=== PATIENT | male | born 1955 | race Caucasian/White ===

== ENCOUNTER 2017-08-19 08:34 | Day surgery (SDC) | payer BC ==
[2017-08-19] VITALS (7 sets, daily range): BP systolic 123–133; BP diastolic 56–94; PULSE 52–62; RESP 18; TEMP 98; O2SAT 94–98
[~2017-08-19] VITALS: Ht 167.6 cm; Wt 92.3 kg
[2017-08-19] MEDS ORDERED: PANT40TA3 PO (09:30)
[2017-08-19] MEDS ORDERED: LEVOFLOXACIN 500 MG PREMIX 100 ML - nephrostomy tube insertion or exchange IV SCH (09:30)
[2017-08-19] MEDS ORDERED: CHOL5000 PO (09:30)
[2017-08-19] MEDS ORDERED: MISCTAB12 (09:30)
[2017-08-19] MEDS ORDERED: VITA250C3 CHEW (09:30)
[2017-08-19] MEDS ORDERED: BENI40TA29 PO (09:30)
[2017-08-19] MEDS ORDERED: HYDR12.57 PO (09:30)
[2017-08-19] MEDS ORDERED: ENZA40CA PO (09:30)
[2017-08-19] MEDS ORDERED: TAMS0.4C4 (09:30)
[2017-08-19] MEDS ORDERED: MAGN400T2 PO (09:30)
[2017-08-19] MEDS ORDERED: ASPI1TAB57 PO (09:30)
[2017-08-19] MEDS ORDERED: SODIUM CHLORIDE 0.9% 1000 ML IV SCH (09:30)
[2017-08-19 09:44] LABS: BASOPHIL # 0.1 TH/MM3 (0-0.2); BASOPHIL % 1.3 % (0.0-2.0); EOSINOPHIL # 0.2 TH/MM3 (0-0.4); EOSINOPHIL % 4.7 % (0.0-4.0); HEMATOCRIT 31.6 % (39.0-51.0); HEMOGLOBIN 10.7 GM/DL (13.0-17.0); LYMPH % 23.9 % (9.0-44.0); LYMPHOCYTE # 1.2 TH/MM3 (1.0-4.8); MEAN CELL VOLUME 95.9 FL (80.0-100.0); MEAN CORPUSCULAR HEMOGLOBIN 32.6 PG (27.0-34.0); MEAN PLATELET VOLUME 6.8 FL (7.0-11.0); MONOCYTE # 0.5 TH/MM3 (0-0.9); NEUT % 60.1 % (16.0-70.0); PLATELET COUNT 323 TH/MM3 (150-450); RED BLOOD COUNT 3.29 MIL/MM3 (4.50-5.90); RED CELL DISTRIBUTION WIDTH 13.2 % (11.6-17.2)
[2017-08-19 09:54] LABS: PROTHROMBIN TIME - PATIENT 10.2 SEC (9.8-11.6)
[2017-08-19] MEDS ORDERED: fentaNYL CITRATE 250 MCG/5 ML AMP ONE (10:24)
[2017-08-19] MEDS ORDERED: MIDAZOLAM HCL 5 MG/5 ML VIAL ONE (10:24)
--- NOTE | 2017-08-19 11:43 | PD.RAD ---
Post Procedure Progress Note Pre Procedure Diagnosis: (1) Hydronephrosis Post Procedure Diagnosis: (1) Hydronephrosis Procedure Date: Aug 19, 2017 Supervising Radiologist: Husam Villalobos Proceduralist/Assist: Manuela Grossman, RT(R)(CV), Swati Bruner RT(R) Anesthesia: Conscious Sedation Plan of Activity Patient to Unit: ROPU Patient Condition: Good See PACS Report for procedural detail/treatment Husam Villalobos MD Aug 19, 2017 11:43
--- NOTE | 2017-08-19 13:08 | RADRPT ---
EXAM DATE/TIME: 08/19/2017 08:56 [facility] COMPARISON: No previous studies available for comparison. 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 Retrograde access attempt has been unsuccessful. Percutaneous antegrade access with ureteral stent placement has been requested. MEDICAL HISTORY : Prostate cancer High cholesterol HTN Migraines Osteoarthritis SURGICAL HISTORY : Cystoscopy Prostate Bx Hemorrhoiclectomy nasal septoplasty ENCOUNTER: Initial ACUITY: 1 month PAIN SCORE: 0/10 FLUORO TIME: 5.6 minutes IMAGE SERIES: 1 SEDATION TIME: 45 minutes CONTRAST: 20 cc Omnipaque (iohexol) 350 MEDICATION(S): 1.) 3 mg midazolam (Versed) IV 2.) 150 mcg fentanyl (Sublimaze) IV DEVICE(S): 1.) 8 Maldivian ureteral stent 8x24 PROCEDURE : 1. Antegrade percutaneous pyelogram. 2. Percutaneous ureteral stent and percutaneous nephrostomy catheter placement. 3. Conscious sedation with continuous EKG and oximetry monitoring. The risks, benefits and alternatives to the procedure were explained and verbal and written consent w as obtained. The site was prepped in sterile fashion. Full sterile technique was used, including ca p, mask, sterile gloves and gown and a large sterile sheet. Hand hygiene and 2% chlorhexidine and/or betadine/alcohol prep was utilized per protocol for cutaneous antisepsis. The skin and subcutaneous tissues were infiltrated with local anesthetic solution. An upper pole calyx was targeted with ultrasound and 21 gauge needle. Following calyceal puncture a w bladimir was successfully advanced into the bladder. The ureteral stent above was placed over with the pro ximal portion within the renal pelvis and the distal extent in the urinary bladder. An 8 Maldivian nephr ostomy catheter was subsequently placed in the renal pelvis. The patient tolerated the procedure well and there were no complications. Conscious sedation was performed with the prescribed dosages and duration as above in the presence of an independent trained radiology nurse to assist in the monitoring of the patient. EKG and oximetry remained stable throughout the procedure. The patient tolerated the procedure well and there were no complications. The patient was sent to post anesthesia recovery in stable condition. CONCLUSION: 1. Uncomplicated placement of a left-sided ureteral stent for treatment of distal ureteral obstructio n. 2. The percutaneous nephrostomy catheter was left in the collecting system to maintain access. Plan: Patient will be challenged following 24-48 hrs. of drainage with plan for subsequent nephrostom y catheter removal. Husam Villalobos MD on August 19, 2017 at 13:01 Board Certified Radiologist. This report was verified electronically.
[2017-08-19] MEDS ORDERED: ACETAMINOPHEN 325 MG TAB PO ONE (13:15)
== END 2017-08-19 15:00 | disposition home or self-care (01) ==
LOC: EDBD → HROP 08:34 → HRIP 08:35 → HROP 15:00
PROVIDERS: ATTEND Urology
DX: N13.30 Unspecified hydronephrosis (principal); Z85.46 Personal history of malignant neoplasm of prostate; E78.00 Pure hypercholesterolemia, unspecified; I10 Essential (primary) hypertension; M19.90 Unspecified osteoarthritis, unspecified site; Z92.3 Personal history of irradiation
CPT/HCPCS: 50695; 85025; 85610; 85730; 99152; 99153; C1729; C1769; C1877; C1887; C1894; J1956; J2250; J3010; J7030

== ENCOUNTER 2017-08-22 17:03 | Emergency (ER) | payer BC ==
[~2017-08-22] VITALS: Ht 167.6 cm; Wt 93.0 kg
[~2017-08-22 17:03] MED LIST: ASPI1TAB57 PO; BENI40TA29 PO; CHOL5000 PO; ENZA40CA PO; HYDR12.57 PO; MAGN400T2 PO; MISCTAB12; PANT40TA3 PO; TAMS0.4C4; VITA250C3 CHEW
[2017-08-22] MEDS ORDERED: MORPHINE SULFATE 4 MG/ML INJ IV PUSH ONE (17:30)
[2017-08-22] MEDS ORDERED: ONDANSETRON HCL 4 MG/2 ML VIAL IV PUSH ONE (17:30)
[2017-08-22] MEDS ORDERED: SODIUM CHLOR 0.9% 1000 ML INJ 1,000 ML IV SCH (17:30)
[2017-08-22] MEDS ORDERED: KETOROLAC TROMETHAMINE 30 MG/ML (IVP) VIAL IV PUSH ONE (17:30)
[2017-08-22 17:32] VITALS: BP 139/86; PULSE 71; RESP 16; TEMP 99.1; O2SAT 100
--- NOTE | 2017-08-22 17:56 | PD ---
HPI Chief Complaint: Flank/Kidney Pain Time Seen by Provider: 17:28 Travel History International Travel<30 days: No Contact w/Intl Traveler<30days: No Traveled to known affect area: No History of Present Illness HPI The patient is a 62-year-old male who presents emergency department for left flank pain and hematuria. The patient has a history of prostate cancer, has an internal stent that was placed by interventional radiology as well as an external stent that was placed by radiology. The patient has been having reddish tinged blood in the external stent, however, is had no hematuria through the penis. He does complain of left-sided flank pain. The patient accidentally pulled on his external stent yesterday. The patient had stents placed after he had severe hydronephrosis on the left side, possibly secondary to previous radiation therapy for prostate cancer. The patient is followed by his urologist, Dr. Manzo. Symptoms are moderate. No nausea or vomiting. No fever. PFSH Past Medical History Cancer: Yes (PROSTATE CANCER, BLADDER CA) Cardiovascular Problems: No Diabetes: No Endocrine: No Gastrointestinal Disorders: Yes (GERD) Genitourinary: Yes (HYDRONEPHROSIS, INCONTINENCE) Hepatitis: No Hiatal Hernia: Yes Hypertension: Yes Immune Disorder: Yes (MORE SUPCEPTIBLE TO INFECTION) Musculoskeletal: No Neurologic: Yes (CVA 2017) Psychiatric: No Reproductive: No Respiratory: Yes (SLEEP APNEA- CPAP AT HOME) Immunizations Current: No (BAD REACTION TO FLU SHOT) Thyroid Disease: No Past Surgical History AICD: No Genitourinary Surgery: Yes (CYSTOSCOPY) Joint Replacement: No Oral Surgery: Yes (SEPTOPLASTY) Pacemaker: No Thoracic Surgery: Yes (BREAST LIPOMA REMOVE) Other Surgery: Yes Social History Alcohol Use: No Tobacco Use: No Substance Use: No Allergies-Medications (Allergen,Severity, Reaction): Uncoded Allergies: PCN (Allergy, Intermediate, Hives, 08/19/17) Reported Meds & Prescriptions Reported Meds & Active Scripts Active Cipro (Ciprofloxacin HCl) 500 Mg Tab 500 Mg PO BID 10 Days Reported Aspirin 81 (Aspirin) 81 Mg Tabdr 81 Mg PO DAILY Tumersaid (Misc Natural Products) 100-100 Mg Tab 500 DAILY Magnesium Oxide 400 Mg Tab 400 Mg PO DAILY Vitamin C (Ascorbic Acid) 250 Mg Chew 500 Mg CHEW DAILY Tamsulosin (Tamsulosin HCl) 0.4 Mg Cap 0.4 Mg HS Pantoprazole (Pantoprazole Sodium) 40 Mg Tab 40 Mg PO DAILY Vitamin D3 (Cholecalciferol) 5,000 Unit Cap 5,000 Units PO DAILY Xtandi (Enzalutamide) 40 Mg Cap 160 Mg PO DAILY Hydrochlorothiazide 12.5 Mg Cap 12.5 Mg PO DAILY Benicar (Olmesartan) 40 Mg Tab 40 Mg PO DAILY Review of Systems Except as stated in HPI: all other systems reviewed are Neg General / Constitutional: No: Fever Cardiovascular: No: Chest Pain or Discomfort Respiratory: No: Shortness of Breath Gastrointestinal: No: Nausea, Vomiting Genitourinary: Positive: Hematuria, Flank Pain Physical Exam Narrative GENERAL: Awake, alert, pleasant 62-year-old male who appears his stated age and appears in moderate discomfort. SKIN: Focused skin assessment warm/dry. HEAD: Atraumatic. Normocephalic. EYES: No injection or drainage. ENT: No nasal bleeding or discharge. Mucous membranes pink and moist. NECK: Trachea midline. No JVD. CARDIOVASCULAR: Regular rate and rhythm. No murmur appreciated. RESPIRATORY: No accessory muscle use. Clear to auscultation. Breath sounds equal bilaterally. GASTROINTESTINAL: Abdomen soft, non-tender, nondistended. No rebound tenderness. Back: External stent on the left noted. Blood noted in external stent back. No visible bleeding from insertion site. MUSCULOSKELETAL: No obvious deformities. No clubbing. No cyanosis. No edema. NEUROLOGICAL: Awake and alert. No obvious cranial nerve deficits. Motor grossly within normal limits. Normal speech. PSYCHIATRIC: Appropriate mood and affect; insight and judgment normal. Data Data Last Documented VS Vital Signs Date Time Temp Pulse Resp B/P (MAP) Pulse Ox O2 Delivery O2 Flow Rate FiO2 08/22/17 17:32 99.1 71 16 139/86 (103) 100 Orders Orders Morphine Inj (Morphine Inj) (08/22/17 17:30) Ondansetron Inj (Zofran Inj) (08/22/17 17:30) Ketorolac Inj (Toradol Inj) (08/22/17 17:30) Sodium Chlor 0.9% 1000 Ml Inj (Ns 1000 M (08/22/17 17:30) Abdomen, Kub Only (08/22/17 ) Ct Abd/Pel W/O Iv Contrast (3/17/18 ) Morphine Inj (Morphine Inj) (08/22/17 18:15) Complete Blood Count With Diff (08/22/17 18:26) Basic Metabolic Panel (Bmp) (08/22/17 18:26) Urinalysis - C+S If Indicated (08/22/17 18:26) Sodium Chlorid 0.9% 500 Ml Inj (Ns 500 M (08/22/17 21:00) Acetamin-Hydrocod 325-10 Mg (Currie 10-32 (08/22/17 21:00) Urine Culture (08/22/17 19:30) Ciprofloxacin (Cipro) (08/22/17 21:30) Ed Discharge Order (08/22/17 21:53) Labs Laboratory Tests Test 08/22/17 17:29 08/22/17 19:30 White Blood Count 7.1 TH/MM3 Red Blood Count 3.42 MIL/MM3 Hemoglobin 11.0 GM/DL Hematocrit 32.2 % Mean Corpuscular Volume 94.0 FL Mean Corpuscular Hemoglobin 32.0 PG Mean Corpuscular Hemoglobin Concent 34.1 % Red Cell Distribution Width 13.0 % Platelet Count 338 TH/MM3 Mean Platelet Volume 7.3 FL Neutrophils (%) (Auto) 68.1 % Lymphocytes (%) (Auto) 21.0 % Monocytes (%) (Auto) 6.8 % Eosinophils (%) (Auto) 3.2 % Basophils (%) (Auto) 0.9 % Neutrophils # (Auto) 4.8 TH/MM3 Lymphocytes # (Auto) 1.5 TH/MM3 Monocytes # (Auto) 0.5 TH/MM3 Eosinophils # (Auto) 0.2 TH/MM3 Basophils # (Auto) 0.1 TH/MM3 CBC Comment DIFF FINAL Differential Comment Blood Urea Nitrogen 24 MG/DL Creatinine 1.56 MG/DL Random Glucose 99 MG/DL Calcium Level 9.2 MG/DL Sodium Level 133 MEQ/L Potassium Level 4.9 MEQ/L Chloride Level 99 MEQ/L Carbon Dioxide Level 26.1 MEQ/L Anion Gap 8 MEQ/L Estimat Glomerular Filtration Rate 45 ML/MIN Urine Color RED Urine Turbidity HAZY Urine pH 6.5 Urine Specific [place] 1.017 Urine Protein 30 mg/dL Urine Glucose (UA) NEG mg/dL Urine Ketones NEG mg/dL Urine Occult Blood LARGE Urine Nitrite NEG Urine Bilirubin NEG Urine Urobilinogen LESS THAN 2.0 MG/DL Urine Leukocyte Esterase MOD Urine RBC /hpf Urine WBC 103 /hpf Urine Bacteria RARE /hpf Microscopic Urinalysis Comment CULTURE INDICATED MDM Medical Decision Making Medical Screen Exam Complete: Yes Emergency Medical Condition: Yes Medical Record Reviewed: Yes Differential Diagnosis Differential diagnosis includes perinephric hematoma, obstructive uropathy, hydronephrosis, UTI, stent malplacement, stent malfunction, acute renal failure. Narrative Course IV was established, labs are drawn and sent, and the patient was placed on cardiac telemetry monitoring and continuous pulse oximetry monitoring. The patient was general ii farmworker morphine, Toradol, Zofran, placed on IV fluids. I discussed the patient with interventional radiologist, Dr. Daniel Moscoso, who evaluated the patient in the emergency department. He flushed the patient's external stent, then placed I shot an x-ray, stents are apparently in place, he did push the external stent and slightly. He recommended CT of the abdomen and pelvis to evaluate for possible perinephric hematoma. BUN/creatinine has been sent to lab. The patient was signed out to the oncoming physician at 7 PM. If there is no large perinephric hematoma and creatinine is at baseline, the patient to be discharged home and follow up with interventional radiology on Thursday. Diagnosis Primary Impression: Flank pain Patient Instructions: General Instructions Scripts Ciprofloxacin (Cipro) 500 Mg Tab 500 MG PO BID for Infection for 10 Days, #20 TAB 0 Refills Prov: Michelle Santos MD 08/22/17 Condition: Stable Sathish Sharma MD Aug 22, 2017 17:56
[2017-08-22] MEDS ORDERED: MORPHINE SULFATE 2 MG/ML INJ IV PUSH ONE (18:15)
--- NOTE | 2017-08-22 18:23 | RADRPT ---
EXAM DATE/TIME: 08/22/2017 17:41 [facility] COMPARISON: No previous studies available for comparison. INDICATIONS : Flank pain. MEDICAL HISTORY : Osteoarthritis, Migraines, HTN, High cholesterol, Prostate cancer SURGICAL HISTORY : Cystoscopy,Prostate Bx, Hemorrhoiclectomy,nasal septoplasty ENCOUNTER: Initial ACUITY: 1 day PAIN SCORE: 0/10 LOCATION: Bilateral Abdomen FINDINGS: Single KUB imaging is provided. This demonstrates the patient ureteral stent to be in excellent posit ion. The patient's nephrostomy tube appears well-positioned as well. There is contrast within the col lecting system of the kidney. And within the bladder. CONCLUSION: 1. The patient's ureteral stent is in excellent position. There is an approximate tube present as wel l. The nephrostomy is coiled within an upper pole calyx. Dick Moscoso MD on August 22, 2017 at 18:20 Board Certified Radiologist. This report was verified electronically.
--- NOTE | 2017-08-22 18:58 | RADRPT ---
EXAM DATE/TIME: 08/22/2017 18:44 [facility] COMPARISON: No previous studies available for comparison. INDICATIONS : Left flank pain. Post nephrostomy. ORAL CONTRAST: No oral contrast ingested. RADIATION DOSE: 16.45 CTDIvol (mGy) MEDICAL HISTORY : Hypertension. Hernia, hiatal. Carcinoma, bladder.Carcinoma, prostate GERD SURGICAL HISTORY : Left nephrostomy ENCOUNTER: Initial ACUITY: 1 day PAIN SCALE: 8/10 LOCATION: Left flank TECHNIQUE: Volumetric scanning of the abdomen and pelvis was performed. Using automated exposure control and ad justment of the mA and/or kV according to patient size, radiation dose was kept as low as reasonably achievable to obtain optimal diagnostic quality images. DICOM format image data is available electro nically for review and comparison. FINDINGS: There is a left sided nephrostomy tube and a left-sided ureteral stent. There is residual contrast in the left renal collecting system which is mildly dilated. There is also some residual contrast in th e bladder. No right-sided renal calculi or obstructive uropathy. Linear parenchymal scarring or atelectasis at the lung bases. No acute findings in the liver, spleen, adrenals or pancreas. No calcified gallstones. Stomach is mildly distended. There is no bowel obstruction. Mild constipation. CONCLUSION: 1. Left sided nephrostomy and ureteral stent present with residual contrast in the kidney and bladder . Minimal dilatation left renal collecting system. Sean Vaughan MD on August 22, 2017 at 18:49 Board Certified Radiologist. This report was verified electronically.
[2017-08-22 19:20] LABS: BICARBONATE 26.1 MEQ/L (21.0-32.0); CALCIUM 9.2 MG/DL (8.5-10.1); CREATININE 1.56 MG/DL (0.60-1.30)
[2017-08-22 19:21] LABS: AUTOMATED NEUTROPHIL # 4.8 TH/MM3 (1.8-7.7); BASOPHIL # 0.1 TH/MM3 (0-0.2); BASOPHIL % 0.9 % (0.0-2.0); EOSINOPHIL # 0.2 TH/MM3 (0-0.4); EOSINOPHIL % 3.2 % (0.0-4.0); HEMATOCRIT 32.2 % (39.0-51.0); LYMPHOCYTE # 1.5 TH/MM3 (1.0-4.8); MEAN CORPUSCULAR HGB CONC 34.1 % (32.0-36.0); MEAN PLATELET VOLUME 7.3 FL (7.0-11.0); MONO % 6.8 % (0.0-8.0); MONOCYTE # 0.5 TH/MM3 (0-0.9); NEUT % 68.1 % (16.0-70.0); PLATELET COUNT 338 TH/MM3 (150-450); RED BLOOD COUNT 3.42 MIL/MM3 (4.50-5.90); WHITE BLOOD COUNT 7.1 TH/MM3 (4.0-11.0)
[2017-08-22] MEDS ORDERED: SODIUM CHLORID 0.9% 500 ML INJ 500 ML IV ONE (21:00)
[2017-08-22] MEDS ORDERED: ACETAMINOPHEN/HYDROcodone 325 MG/10 MG TAB PO ONE (21:00)
[2017-08-22 21:01] LABS: BACTERIA, URINE RARE /hpf; BILIRUBIN, URINE NEG (NEG); BLOOD, URINE LARGE (NEG); GLUCOSE,URINE NEG (NEG); KETONE, URINE NEG (NEG); NITRITE,URINE NEG (NEG); PH, URINE 6.5 (5.0-8.5); URINE COLOR RED (YELLW/STRAW); URINE LEUKOCYTE ESTERASE MOD (NEG)
[2017-08-22] MEDS ORDERED: CIPROFLOXACIN 500 MG TAB PO ONE (21:30)
--- NOTE | 2017-08-22 21:33 | PD ---
Physical Exam Narrative Patient signed out to me by Dr. Sharma. Please see his documentation for complete details. Briefly, patient is a 62 year old male who comes in due to complications with his nephrostomy tube . He complains of pain to his left flank. Nephrostomy tube is producing bloody urine. Data Data Last Documented VS Vital Signs Date Time Temp Pulse Resp B/P (MAP) Pulse Ox O2 Delivery O2 Flow Rate FiO2 08/22/17 17:32 99.1 71 16 139/86 (103) 100 Orders Orders Morphine Inj (Morphine Inj) (08/22/17 17:30) Ondansetron Inj (Zofran Inj) (08/22/17 17:30) Ketorolac Inj (Toradol Inj) (08/22/17 17:30) Sodium Chlor 0.9% 1000 Ml Inj (Ns 1000 M (08/22/17 17:30) Abdomen, Kub Only (08/22/17 ) Ct Abd/Pel W/O Iv Contrast (08/22/17 ) Morphine Inj (Morphine Inj) (08/22/17 18:15) Complete Blood Count With Diff (08/22/17 18:26) Basic Metabolic Panel (Bmp) (08/22/17 18:26) Urinalysis - C+S If Indicated (08/22/17 18:26) Sodium Chlorid 0.9% 500 Ml Inj (Ns 500 M (08/22/17 21:00) Acetamin-Hydrocod 325-10 Mg (Randolph 10-32 (08/22/17 21:00) Urine Culture (08/22/17 19:30) Ciprofloxacin (Cipro) (08/22/17 21:30) Labs Laboratory Tests Test 08/22/17 17:29 08/22/17 19:30 White Blood Count 7.1 TH/MM3 Red Blood Count 3.42 MIL/MM3 Hemoglobin 11.0 GM/DL Hematocrit 32.2 % Mean Corpuscular Volume 94.0 FL Mean Corpuscular Hemoglobin 32.0 PG Mean Corpuscular Hemoglobin Concent 34.1 % Red Cell Distribution Width 13.0 % Platelet Count 338 TH/MM3 Mean Platelet Volume 7.3 FL Neutrophils (%) (Auto) 68.1 % Lymphocytes (%) (Auto) 21.0 % Monocytes (%) (Auto) 6.8 % Eosinophils (%) (Auto) 3.2 % Basophils (%) (Auto) 0.9 % Neutrophils # (Auto) 4.8 TH/MM3 Lymphocytes # (Auto) 1.5 TH/MM3 Monocytes # (Auto) 0.5 TH/MM3 Eosinophils # (Auto) 0.2 TH/MM3 Basophils # (Auto) 0.1 TH/MM3 CBC Comment DIFF FINAL Differential Comment Blood Urea Nitrogen 24 MG/DL Creatinine 1.56 MG/DL Random Glucose 99 MG/DL Calcium Level 9.2 MG/DL Sodium Level 133 MEQ/L Potassium Level 4.9 MEQ/L Chloride Level 99 MEQ/L Carbon Dioxide Level 26.1 MEQ/L Anion Gap 8 MEQ/L Estimat Glomerular Filtration Rate 45 ML/MIN Urine Color RED Urine Turbidity HAZY Urine pH 6.5 Urine Specific [place] 1.017 Urine Protein 30 mg/dL Urine Glucose (UA) NEG mg/dL Urine Ketones NEG mg/dL Urine Occult Blood LARGE Urine Nitrite NEG Urine Bilirubin NEG Urine Urobilinogen LESS THAN 2.0 MG/DL Urine Leukocyte Esterase MOD Urine RBC /hpf Urine WBC 103 /hpf Urine Bacteria RARE /hpf Microscopic Urinalysis Comment CULTURE INDICATED MDM Supervised Visit with CANDIS: No Narrative Course CT abd/pelvis shows no evidence of hematoma. Last 24 hours Impressions Abdomen/Pelvis CT 08/22/17 0000 Signed Impressions: Service Date/Time: Tuesday, August 22, 2017 18:44 - CONCLUSION: 1. Left sided nephrostomy and ureteral stent present with residual contrast in the kidney and bladder. Minimal dilatation left renal collecting system. Sean Vaughan MD Abdomen X-Ray 08/22/17 0000 Signed Impressions: Service Date/Time: Tuesday, August 22, 2017 17:41 - CONCLUSION: 1. The patient's ureteral stent is in excellent position. There is an approximate tube present as well. The nephrostomy is coiled within an upper pole calyx. Dick Moscoso MD GFR is 45, which per Dr. Duran is slightly lower than his normal. He is given pain medicine, IVF, Cipro. Patient would like to go home and follow up with his urologist. Given a prescription for Cipro. He has pain medicine at home. Advised to return at any time for any worsening symptoms. Diagnosis Primary Impression: Flank pain Additional Impression: Hematuria Qualified Codes: R31.9 - Hematuria, unspecified Patient Instructions: General Instructions, Hematuria (ED) Additional Instruction: Take all of the antibiotics. Drink plenty of fluids. Take pain medicine as needed. Follow up with your urologist. Scripts Ciprofloxacin (Cipro) 500 Mg Tab 500 MG PO BID for Infection for 10 Days, #20 TAB 0 Refills Prov: Michelle Santos MD 08/22/17 Disposition: 01 DISCHARGE HOME Condition: Stable Michelle Santos MD Aug 22, 2017 21:33
[2017-08-22] MEDS ORDERED: CIPR-9 PO (21:52)
== END 2017-08-22 22:18 | disposition home or self-care (01) ==
LOC: EDBD → NEPE 17:03
DX: R10.9 Unspecified abdominal pain (principal); R31.9 Hematuria, unspecified; K21.9 Gastro-esophageal reflux disease without esophagitis; I10 Essential (primary) hypertension; G47.30 Sleep apnea, unspecified; Z93.6 Other artificial openings of urinary tract status; Z85.46 Personal history of malignant neoplasm of prostate; Z86.73 Personal history of transient ischemic attack (TIA), and cerebral infarction without residual deficits; Z85.51 Personal history of malignant neoplasm of bladder
CPT/HCPCS: 74018; 74176; 80048; 81001; 85025; 87086; 96361; 96374; 96375; 96376; 99284; J1885; J2270; J2405; J7030; J7040

== ENCOUNTER 2017-08-24 09:42 | Day surgery (SDC) | payer BC ==
[~2017-08-24] VITALS: Ht 170.2 cm; Wt 93.2 kg
[~2017-08-24 09:42] MED LIST changes: +CIPR-9 PO
[2017-08-24] MEDS ORDERED: IOHEXOL 350 MG/ML 50 ML BTL (for RAD DIAG) OTHER ONE (09:43)
[2017-08-24 10:01] VITALS: BP 143/78; PULSE 78; RESP 20; TEMP 98; O2SAT 95
[2017-08-24] MEDS ORDERED: HYDR-3580 PO (10:17)
[2017-08-24] MEDS ORDERED: SODIUM CHLORIDE 0.9% 1000 ML IV SCH (10:30)
[2017-08-24] MEDS ORDERED: MIDAZOLAM HCL 2 MG/2 ML VIAL ONE (11:09)
[2017-08-24] MEDS ORDERED: fentaNYL CITRATE 250 MCG/5 ML AMP ONE (11:09)
--- NOTE | 2017-08-24 11:36 | PD.RAD ---
Post Procedure Progress Note Pre Procedure Diagnosis: (1) Hydronephrosis Post Procedure Diagnosis: (1) Hydronephrosis Procedure Date: Aug 24, 2017 Supervising Radiologist: Husam Villalobos Proceduralist/Assist: Leana Day RT(R)(), Jose Roberto Bowman RT(R) Anesthesia: Conscious Sedation Plan of Activity Patient to Unit: ROPU Patient Condition: Good See PACS Report for procedural detail/treatment Husam Villalobos MD Aug 24, 2017 11:36
[2017-08-24 11:40] VITALS: BP 164/79; PULSE 64; PULSE 65; RESP 16; RESP 20; TEMP 98.4; O2SAT 96
[2017-08-24 12:00] VITALS: BP 171/72; PULSE 61; RESP 20; O2SAT 92
[2017-08-24 12:30] VITALS: BP 165/71; PULSE 70; RESP 20; O2SAT 94
[2017-08-24 13:00] VITALS: BP 138/72; PULSE 68; RESP 20; O2SAT 94
--- NOTE | 2017-08-24 13:14 | RADRPT ---
EXAM DATE/TIME: 08/24/2017 11:11 [facility] COMPARISON: No previous studies available for comparison. INDICATIONS : Patient with a history of left ureteral stricture, nephrostomy tube needs evaluated with possible rem oval. MEDICAL HISTORY : Prostate cancer High cholesterol HTN Migraines Osteoarthritis SURGICAL HISTORY : Cystoscopy Prostate BX Hemorrhoiclectomy Nasal septoplasty ENCOUNTER: Subsequent ACUITY: 1 month PAIN SCORE: 2/10 LOCATION: Left lower quadrant FLUORO TIME: 0.5 minutes IMAGE SERIES: 4 SEDATION TIME: 30 minutes CONTRAST: 10 cc Omnipaque (iohexol) 350 MEDICATION(S): 1.) 1.5 mg midazolam (Versed) IV 2.) 100 mcg fentanyl (Sublimaze) IV DEVICE(S): 1.) 8 German nephrostomy catheter PROCEDURE : 1. Antegrade pyelogram. 2. Nephrostomy tube removal. The risks, benefits and alternatives to the procedure were explained and verbal and written consent w as obtained. The site was prepped in sterile fashion. Full sterile technique was used, including ca p, mask, sterile gloves and gown and a large sterile sheet. Hand hygiene and 2% chlorhexidine and/or betadine/alcohol prep was utilized per protocol for cutaneous antisepsis. The skin and subcutaneous tissues were infiltrated with local anesthetic solution. With fluoroscopic guidance the existing nephrostomy catheter was injected. Contrast injection shows the adequate drainage through the ureteral stent, therefore the nephrostomy catheter was removed. Di rect manual pressure was applied to the site. There were no complications and the patient was sent to post anesthesia recovery in stable condition. CONCLUSION: Uncomplicated nephrostomy tube removal as above. Husam Villalobos MD on August 24, 2017 at 13:10 Board Certified Radiologist. This report was verified electronically.
== END 2017-08-24 13:45 | disposition home or self-care (01) ==
LOC: EDBD → HROP 09:42 → EDBD 09:42 → HRIP 09:48 → HROP 13:45
PROVIDERS: ATTEND Urology
DX: N13.30 Unspecified hydronephrosis (principal); C61 Malignant neoplasm of prostate; E78.00 Pure hypercholesterolemia, unspecified; I10 Essential (primary) hypertension; G43.909 Migraine, unspecified, not intractable, without status migrainosus; M19.90 Unspecified osteoarthritis, unspecified site
CPT/HCPCS: 50389; 50431; 99152; 99153; J2250; J3010; J7030; Q9967